=== PATIENT | male | born 1995 | race Caucasian/White ===

== ENCOUNTER 2018-06-16 18:44 | Emergency (ER) | payer OTHER ==
[2018-06-16] MEDS ORDERED: Acetaminophen 500 MG TAB ONE (19:15)
--- NOTE | 2018-06-16 19:40 | RAD ---
XR FINGER LEFT 3 VIEW 06/16/18 INDICATION: Injury. FINDINGS: Imaged digit of the left hand reveals partial amputation of the distal soft tissues. No definite trun cation of the tuft of the distal phalanx. No displaced fracture is seen. IMPRESSION: Partial amputation of the distal soft tissues of the imaged digit. No definite osseous involvement id entified. There is limitation due to overlying bandaging. Short-term imaging followup may be obtaine d for continued assessment of the osseous structures of this region. POS: LUIZ
== END 2018-06-16 19:43 | disposition home or self-care (01) ==
LOC: MADERS 18:44
DX: S68.121A Partial traumatic metacarpophalangeal amputation of left index finger, initial encounter (principal); F17.220 Nicotine dependence, chewing tobacco, uncomplicated; F32.9 Major depressive disorder, single episode, unspecified; W26.8XXA Contact with other sharp object(s), not elsewhere classified, initial encounter

== ENCOUNTER 2021-09-14 19:29 | Emergency (ER) | payer OTHER ==
[2021-09-14] MEDS ORDERED: Lidocaine 1% (PF) 30 ML VIAL ONE (19:53)
== END 2021-09-14 20:29 | disposition home or self-care (01) ==
LOC: MADERS 19:29
DX: S61.012A Laceration without foreign body of left thumb without damage to nail, initial encounter (principal); F17.220 Nicotine dependence, chewing tobacco, uncomplicated; W26.0XXA Contact with knife, initial encounter
CPT/HCPCS: 12001; J2001